=== PATIENT | male | born 1935 ===

== ENCOUNTER 2018-02-13 05:50 | Day surgery (SDC) | payer OTHER ==
[~2018-02-13 05:50] MED LIST: ATORVASTATIN CA20 MG; CANDESARTAN CIL32 MG; GABAPENTIN400 MG; LANTUS SOL100 UNIT/1
[2018-02-13] MEDS ORDERED: PERCOCET 5-3251 EACH PO (08:57)
[2018-02-13] MEDS ORDERED: RECTICARE30 GM TOP (08:57)
== END 2018-02-13 13:35 | disposition home or self-care (01) ==
LOC: CIR.AMB 05:50
DX: K60.5 Anorectal fistula (principal)

== ENCOUNTER 2018-06-12 06:00 | Day surgery (SDC) | payer OTHER ==
[~2018-06-12 06:00] MED LIST changes: +PERCOCET 5-3251 EACH PO; +RECTICARE30 GM TOP
[2018-06-12] MEDS ORDERED: RECTICARE30 GM TOP (08:00)
[2018-06-12] MEDS ORDERED: PERCOCET 5-3251 EACH PO (08:00)
== END 2018-06-12 13:00 | disposition home or self-care (01) ==
LOC: CIR.AMB 06:00
DX: K60.5 Anorectal fistula (principal)